=== PATIENT | female | born 1970 | race Caucasian/White ===

== ENCOUNTER 2018-11-02 14:27 | Emergency (ER) | payer OTHER ==
[~2018-11-02] VITALS: Ht 162.6 cm; Wt 78.0 kg
[2018-11-02 14:47] VITALS: Ht 162.6 cm; Wt 78.0 kg
[2018-11-02 15:27] LABS: BASOPHIL % 0.4 % (0-2); PLATELET COUNT 258 x10^3mcL (130-400); RED CELL DISTRIBUTION WIDTH 11.9 % (11.5-14.5)
[2018-11-02 15:35] LABS: CALCIUM 8.6 mg/dL (8.5-10.1); CARBON DIOXIDE 28.2 mmol/L (21-32); CHLORIDE SERUM 104 mmol/L (98-107); CREATININE SERUM 0.7 mg/dL (0.6-1.0); GFR1 > 60 mL/min; GLUCOSE SERUM 111 mg/dL (74-106); POTASSIUM SERUM 3.7 mmol/L (3.5-5.1); SODIUM SERUM 140 mmol/L (136-145)
[2018-11-02 15:39] LABS: ALKALINE PHOSPHATASE 82 U/L (46-116); ALT/SGPT 10 U/L (14-59); AMYLASE 57 U/L (25-115); AST/SGOT 27 U/L (15-37); BILIRUBIN TOTAL 0.23 mg/dL (0.20-1.00); CHOLESTEROL 165 mg/dL (<200); HDL CHOLESTEROL 49 mg/dL (40-60); LIPASE 183 IU/L (73-393); TOTAL PROTEIN, SERUM 7.7 g/dL (6.4-8.2)
[2018-11-02 15:40] LABS: ALBUMIN 3.2 g/dL (3.4-5.0)
[2018-11-02 15:49] LABS: UA SPECIFIC GRAVITY 1.015 (1.005-1.035); microscopic required? YES; urine erythrocyte TRACE (NEGATIVE)
[2018-11-02 16:01] LABS: AMPHETAMINE QUAL UR NONE DETECTED (See below)
[2018-11-02 17:29] VITALS: BP 128/76
== END 2018-11-02 17:29 | disposition home or self-care (01) ==
LOC: ED 14:27
PROVIDERS: Emergency Medicine
DX: I24.9 Acute ischemic heart disease, unspecified (principal); R07.89 Other chest pain
CPT/HCPCS: 36415; 83880; 85378; Q0092